=== PATIENT | female | born 2000 | race Caucasian/White ===

== ENCOUNTER 2020-04-06 16:11 | Emergency (ER) | payer BC, SELFPAY ==
--- NOTE | ~2020-04-06 | XR_ITS ---
EXAMINATION: XR chest 2V EXAM DATE: 04/06/2020 17:46 INDICATION: Left-sided chest pain for one month radiating down back/side. TECHNIQUE: Frontal and lateral projections of the chest obtained and reviewed. There is no prior david dy for comparison. FINDINGS: The lungs are clear. There are no pleural effusions. The cardiomediastinal silhouette is within normal limits. There is no pneumothorax suspected. The bones and soft tissues are unremarkab le. IMPRESSION: Normal chest x-ray exam. Reviewed, dictated and finalized at location A. IMPRESSION: Normal chest x-ray exam.
--- NOTE | 2020-04-06 16:14 | ECG_ITS ---
Measurements Intervals [place] Rate: 113 P: 51 GA: 140 QRS: 57 QRSD: 98 T: -60 QT: 320 QTc: 440 Interpretive Statements SINUS TACHYCARDIA INCOMPLETE RIGHT BUNDLE BRANCH BLOCK BORDERLINE ST-T WAVE ABNORMALITY- ANTEROLAT/INF LEADS BASELINE WANDER- AVR, AVL, AVF ABNORMAL ECG Electronically Signed On 04-06-2020 16:32:15 CDT by Nakul Srinivasan D.O.
[2020-04-06 16:35] VITALS: BP 131/75; PULSE 100; RESP 18; TEMP 37; O2SAT 100
--- NOTE | 2020-04-06 17:57 | ED.CHESTPAIN ---
HPI - Chest Pain General Chief Complaint: Chest Pain Stated Complaint: CP X 1MONTH NEG COVID 04/03 Time Seen by Provider: 04/06/20 17:38 Source: patient Mode of arrival: ambulatory Limitations: no limitations History of Present Illness HPI narrative: Patient is a 20-year-old female who presents complaining of left-sided chest pain x2 to 3 weeks. She reports pain increases with deep breathing. Patient reports negative Covid test on 04/04. She reports intermittent shortness of breath. Patient reports a history of anxiety and reports takes Xanax occasionally. Patient does take control. She denies cardiac history of her asthma. She denies fever, sore throat, nausea, vomiting or diarrhea. Patient denies taking [id number] medications for pain at this time. Related Data Allergies Allergy/AdvReac Type Severity Reaction Status Date / Time No Known Allergies Allergy Verified 04/06/20 16:39 Review of Systems Review of Systems: Narrative: CONSTITUTIONAL: Denies fever, chills, or sweats. EYES: Denies visual changes, redness, or discharge. ENT: Denies rhinorrhea, congestion, sore throat, or otalgia. CARDIOVASCULAR: Reports chest pain, denies palpitations or edema. RESPIRATORY: Denies cough, reports intermittent dyspnea. GASTROINTESTINAL: Denies abdominal pain, nausea, vomiting, or diarrhea. GENITOURINARY: Denies dysuria or hematuria. SKIN: Denies rash or itching. MUSCULOSKELETAL: Denies back pain, joint pain, or myalgia. NEUROLOGIC: Denies headache, numbness, dizziness, or weakness. PSYCHIATRIC: Denies anxiety or depression. PMFSH Past Medical History Medical History (Updated 04/06/20 @ 19:07 by ANNY Patten) Anxiety Surgical History Surgical History (Updated 04/06/20 @ 18:01 by ANNY Patten) History of appendectomy Family History Family History (Updated 04/06/20 @ 18:01 by ANNY Patten) Other Heart disease Social History Social History (Updated 04/06/20 @ 18:01 by ANNY Patten) Smoking status: Never smoker Alcohol intake: current Alcohol use details: occasional Substance use: never Living arrangements: with family Exam Narrative: Exam Narrative: GENERAL: Well-appearing, well-nourished, and in no acute distress. HEAD: Normocephalic, atraumatic. EYES: No redness or drainage. ENT: Mucous membranes pink and moist. CHEST: No respiratory distress. Clear to auscultation. Tenderness to left chest wall with palpation. HEART: Regular rate and rhythm. No murmur appreciated. Normal peripheral pulses. EXTREMITIES: Normal range of motion. No edema. SKIN: Warm, dry, no rash. NEURO: No focal deficits. Alert and oriented x3. Gait steady. PSYCH: Normal affect. No signs of depression. Patient appears slightly anxious. Course Vital Signs Vital signs: Vital Signs Temperature 37.0 C 04/06/20 16:35 Pulse Rate 100 04/06/20 16:35 Respiratory Rate 18 04/06/20 16:35 Blood Pressure 131/75 04/06/20 16:35 Pulse Oximetry 100 04/06/20 16:35 Temperature 37.0 C 04/06/20 16:35 Pulse Rate 100 04/06/20 16:35 Respiratory Rate 18 04/06/20 16:35 Blood Pressure 131/75 04/06/20 16:35 Pulse Oximetry 100 04/06/20 16:35 MDM - Chest Pain MDM Narrative Medical decision making narrative: Patient's EKG and chest x-ray had negative findings. Patient's D-dimer negative, CT to rule out PE not completed due to negative D-dimer. Discussed chest wall pain with patient. Discussed some of patient's chest pain could also be related to her history of anxiety. Discussed keeping anxiety under control at home. Patient aware of the need for follow-up with PCP in 3 to 5 days. Patient is stable for discharge to home with outpatient follow-up as discussed. Differential Diagnosis Differential diagnosis: Likely atypical chest pain, costochondritis, chest pain and other (anxiety) Critical Care Time Critical Care Time Critical Care Time: No Discharg
[2020-04-06 18:17] LABS: Basophils Percent Auto 0.4 % (0.2-1.2); Eosinophils Absolute Auto 0.1 K/mm3 (0-0.3); Hematocrit 40.8 % (37.0-47.0); Hemoglobin 13.8 g/dL (12.0-15.0); Immature Granulocyte Absolute 0.01 K/mm3 (0.00-0.031); Immature Granulocyte Percent A 0.1 % (0-0.5); Lymphocytes Absolute Auto 2.27 K/mm3 (0.9-3.2); Lymphocytes Percent Auto 28.3 % (18.3-44.2); Mean Corpuscular HGB Conc 33.8 g/dl (32-36); Mean Corpuscular Hemoglobin 29.1 pg (26-34); Mean Corpuscular Volume 86.1 fl (80-100); Mean Platelet Volume 10.5 fl (7.4-10.4); Monocytes Absolute Auto 0.5 K/mm3 (0.1-0.6); Neutrophils Absolute Auto 5.2 K/mm3 (1.3-6.7); Neutrophils Percent Auto 64.2 % (45.5-73.1); Platelet Count Result 236 k/mm3 (150-375); Red Blood Count 4.74 M/mm3 (4.2-5.4); Red Cell Distribution Width 12.9 % (11.5-14.5)
[2020-04-06 18:28] LABS: Alanine Aminotransferase 18 U/L (4-35); Albumin Level 4.5 g/dL (3.5-5.1); Alkaline Phosphatase 64 U/L (38-126); Anion Gap 11 mmol/L (8-16); Aspartate Amino Transferase 21 U/L (14-36); Bilirubin,Total 0.4 mg/dL (0.2-1.3); Blood Urea Nitrogen 11 mg/dL (7-17); Calcium 9.7 mg/dL (8.4-10.2); Carbon Dioxide 23 mmol/L (22-30); Chloride 106 mmol/L (98-107); Estimated CRCL calculation 114 ml/min; Estimated Glomerular Filt Rate > 60; Glucose 90 mg/dL (65-105); Potassium 3.8 mmol/L (3.4-5.0); Sodium 140 mmol/L (137-145)
[2020-04-06 18:34] VITALS: BP 138/90; PULSE 112; RESP 18; O2SAT 97
[2020-04-06 18:34] LABS: D Dimer 0.27 ug/mL (<0.48)
[2020-04-06 18:35] VITALS: PULSE 116
[2020-04-06 18:40] LABS: Troponin I < 0.012 ng/mL (0.000-0.034)
[2020-04-06] MEDS: LORazepam INJ (*CRX) 2 MG/ML VIAL 1 MG IV PUSH (19:00)
[2020-04-06 19:15] VITALS: BP 129/79; PULSE 109; RESP 18; O2SAT 95
== END 2020-04-06 19:15 | disposition home or self-care (01) ==
PROVIDERS: Emergency Provider Nurse Practitioner
DX: R07.89 Other chest pain (principal); F41.9 Anxiety disorder, unspecified
CPT/HCPCS: 36415; 71046; 80053; 84484; 85025; 85380; 93005; 96374; 99284; J2060